=== PATIENT | female | born 2000 | race Caucasian/White ===

== ENCOUNTER 2022-12-05 06:35 | Day surgery (SDC) | payer OTHER, SELFPAY ==
[2022-12-05] VITALS (13 sets, daily range): BP systolic 86–120; BP diastolic 50–85; PULSE 60–80; RESP 14–16; TEMP 36.3–37.3; O2SAT 94–99; BMI 26.9
[2022-12-05] MEDS: LACTATED RINGERS 1000 ML 1,000 ML 100 ML IV ×2 (06:40→08:15)
[2022-12-05] MEDS: fentaNYL 100 MCG/2 ML inj IVP (07:27)
[2022-12-05] MEDS: MIDAZOLAM HCL 1 MG/ML inj IVP (07:27)
--- NOTE | 2022-12-05 07:43 | SUR.PREOP ---
TIME?OUT:?0725 PT/RN/MDA?VERIFICATION?OF?SURGICAL?SITE,?PROCEDURE,?AND?CONSENT OBTAINED?PRIOR?TO?INVASIVE?PROCEDURE.
[2022-12-05] MEDS: CEFAZOLIN 2 GM in 0.9 % SODIUM CHLORIDE Mini-bag 100 ML IVPB (08:07)
--- NOTE | 2022-12-05 08:26 | W.ANESCHARGE ---
Anesthesia Charges Start Date/Time Anesthesia Start Date: 12/05/22 Anesthesia Start Time: 07:55 Stop Date/Time Anesthesia Stop Date: 12/05/22 Anesthesia Stop Time: 10:01
--- NOTE | 2022-12-05 08:27 | W.PM.NB ---
Nerve Block Nerve Block Time Seen by Provider: 07:28 Date Seen: 12/05/22 Type of block requested by surgeon for post-operative analgesia: femoral Side: left Time out performed: Yes Verification of patient name: Yes Verification of date of : Yes Site marking: site marked Name of person performing procedure: Joel Continuous monitoring Was continuous monitoring of O2 sat, B/P, cardiac specialist, recorded every 15 minutes?: Yes Procedure Checklist: sterile prep, needles and gloves Ultrasound guided. Images saved: Yes Medications given in 5ml increments after negative aspiration: Ropivicaine %: 0.5 mL: 20 Needle gauge: 20 Decadron (mg): 10 Precedex (mcg): 25 Patient tolerated procedure well: Yes Additional comments: Needle noted adjacent to nerve Block Charges Block Charge (with Pro Fee): Femoral Nerve Use of Ultrasound Machine for Block: Yes- US Guidance/pain block
--- NOTE | 2022-12-05 08:27 | W.PM.NB ---
Nerve Block Nerve Block Time Seen by Provider: 07:28 Date Seen: 12/05/22 Type of block requested by surgeon for post-operative analgesia: geniculars Side: left Time out performed: Yes Verification of patient name: Yes Verification of date of : Yes Site marking: site marked Name of person performing procedure: Joel Continuous monitoring Was continuous monitoring of O2 sat, B/P, quality assurance monitor final, recorded every 15 minutes?: Yes Procedure Checklist: sterile prep, needles and gloves Medications given in 5ml increments after negative aspiration: Ropivicaine %: 0.5 mL: 9 Needle gauge: 25 Patient tolerated procedure well: Yes Block Charges Block Charge (with Pro Fee): Genicular Nerve Block Use of Ultrasound Machine for Block: No
--- NOTE | 2022-12-05 08:33 | SUR.OPER ---
PATIENT QUESTIONS ANSWERED SATISFACTORILY PREOPERATIVELY.? PATIENT BROUGHT TO OR #4 PER CART AFTER ADMINISTRATION OF A BLOCK.? Patient positioned supine on OR #4 bed.? The perioperative?team supported arms bilaterally on arm boards.? Final approval of positioning by surgeon.
--- NOTE | 2022-12-05 09:37 | P.ORPRC_ITS ---
Procedure Note Date of procedure: 12/05/22 Procedure: PREOPERATIVE DIAGNOSIS: 1. Left knee medial meniscus [id number], acute POSTOPERATIVE DIAGNOSIS: 1. Left knee medial meniscus [id number], acute PROCEDURE: 1. Left knee arthroscopic medial meniscus inside-out repair SURGEON: Raheel Soria M.D. AUDIT OFFICER: Jan Rodriguez PA-C; Cesar RODNEY. Of note, a skilled assistant professor of anthropology was critical for this case to aid in patient positioning, knee manipulation, skill to manipulate arthroscopic instruments and camera, instrument exchange and suture passage/retrieval, and closure. 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 She had an inability to fully extend her knee. Exam was concerning for bucket-handle medial meniscus tear. MRI was obtained indeed confirm these findings with the medial meniscus fragment flipped into the intercondylar notch. Given her desire to remain physically active with soccer type of sporting activities, surgery is indicated for meniscus repair. FINDINGS: Healthy chondral surfaces in all 3 compartments. Intact lateral meniscus. ACL and PCL were intact robust. Medial meniscus showed bucket-handle tearing with the fragment flipped into the intercondylar notch. This was torn through the red red zone nearly from the posterior root around to the far anterior horn. Majority of the meniscus was involved (75% of the C shape structure) The anterior and posterior roots were intact. DESCRIPTION OF PROCEDURE: After a thorough discussion of risks, benefits, and alternatives, the patient was brought to the operating room and placed upon the operating table. Induction of anesthesia was undertaken as previously noted. 1 g IV Ancef was administered within 1 hr of incision preoperatively. Appropriate time-out was performed identifying proper patient, site, and procedure. The left lower extremity was prepped and draped in the appropriate sterile fashion using ChloraPrep. The limb was exsanguinated and tourniquet inflated. Anterolateral and anteromedial portals were established with an 11 blade, and a diagnostic arthroscopy was performed. This identified the findings as noted above. Following the diagnostic arthroscopy, the meniscal tear edges were debrided with a rasp like device and the torpedo shaver without suction. At this stage, the meniscus was reduced and felt that the quality of tissue and the fact that it is in the red-red zone and was worthy to be repaired in this young individual. Thus, we made a longitude incision along the posterior edge of the medial proximal tibia. 1/3 above and 2/3 below the joint line. Sharp incision through skin and blunt dissection through subcutaneous tissue allowed identification of the sartorial fascia. This was incised longitudinally and 2nd 3rd layers were retracted. The gastrocnemius could be palpated. This was retracted and a speculum was placed between the capsule and the gastrocnemius for protection. Sutures then passed from inside-out orientation. We started in the posterior portion of the meniscus with a combination of vertical mattress and oblique mattress type of sutures. Excellent reapproximation of the meniscus was achieved after approximately 8 sutures were passed and tied. The meniscus was reprobed and found to be stable. Instruments were removed, excess fluid was drained, and closure performed with 2-0 Vicryl for subcutaneous closure of the medial incision, and 4-0 Stratafix for subcuticular closure and portal closure. with Steri-Strips. Dressings were applied, the tourniquet deflated, and the patient was awoken from anesthesia and transferred to the PACU in stable condition. A skilled assistant professor of anthropology was critical for this case to aid in patient positioning, knee manipulation, skill to manipulate arthroscopic instruments and camera, instrument exchange, and closure. PLAN: 1. Toe-touch weightbear left lower extremity. Crutch / walker ambulation assistance PRN. 2. Ice, acetominophen and/or ibuprofen, and Percocet for pain as needed. 3. Knee range of motion and quad sets/straight leg raise regularly 4. Follow up with PA visit in 1-2 weeks for a wound check. Initiate PT for A/P ROM and e-stim/open chain quad exercises.
--- NOTE | 2022-12-05 09:58 | W.ANESCHARGE ---
Anesthesia Charges Start Date/Time Anesthesia Start Date: 12/05/22 Anesthesia Start Time: 07:55 Stop Date/Time Anesthesia Stop Date: 12/05/22 Anesthesia Stop Time: 10:01
[2022-12-05] MEDS: OxyCODONE/APAP 5-325 TABLET PO (10:56)
== END 2022-12-05 11:47 | disposition home or self-care (01) ==
PROVIDERS: Visit Provider Orthopaedic Surgery Sports Medicine
PROC: (CPT 29870; principal; 2022-12-05 08:00)
DX: S83.212A Bucket-handle tear of medial meniscus, current injury, left knee, initial encounter (principal)
CPT/HCPCS: 29882; 29879; 01400; 64447; 64454; 76942; A9270; J0690; J1100; J2250; J2405; J2704; J2795; J3010; J7120; L1833